=== PATIENT | female | born 1985 | race Hispanic/Latino ===

== ENCOUNTER 2018-05-04 01:30 | Day surgery (SDC) | payer OTHER ==
[2018-05-04 02:12] VITALS: BP 125/72; TEMP 98.5; BMI 39.8
--- NOTE | 2018-05-04 02:47 | PDOC.LDHP ---
Labor and Delivery H&P Chief complaint: contractions HPI: 33 yo diabetic @ 36.5 presents for painful contractions. Pt reports contractions began on Saturday and have gradually increased in frequency and strength. Her main concern was that she began to feel pressure as if she needed to push, similar to prior . She reports pos movement, denies vaginal bleeding, denies vaginal discharge and denies LOF. Per pt, office cervical check was 3cm. Current gestational age (weeks): 36 (36.5) Due date: 05/27/18 Dating criteria: last menstrual period, first trimester ultrasound Current complications: gestational diabetes Abnormal US findings: No Current medications: pre-zachary vitamins Previous surgical history: none Allergies/Adverse Reactions: Allergies Allergy/AdvReac Type Severity Reaction Status Date / Time No Known Allergies Allergy Verified 05/05/18 12:11 Social history: none - Physical Exam Vital signs reviewed and normal: yes General: NAD, breathing through contractions Heart: RRR Lungs: nonlabored breathing Abdomen: gravid Extremeties: trace edema FHT: category 2 (single late deceleration on initiaion of external FHTs (likely positional), since corrected to cat 1 strip. Mod variability, pos accels, and no recurrence of late or variable decelerations. Baseline 140.) [place] contractions every: 5-10min - Vaginal Exam cm dilated: 4 Effacement: 50% Station: -2 - OB Labs Blood type: B RH: positive Antibody Screen: negative HIV: negative RPR: negative HEPSAg: negative 1 hour GCT: positive 3 hour GTT: 205 GBS: negative - Assessment 1) Contractions, r/o latent vs active labor: - ctx every 5-10 minutes, cervical check 4,60,-2; fhts cat 2--> cat 1 - will cont to monitor on L&D and recheck cervix in approx 2 hours to assess change - GBS neg - good dating, no indication for mag/steroids Dispo: stable, obs in l&d, recheck in 2 hrs - Plan Plan: observation in L&D Addendum - Attending - Attending Attestation Date/Time: 05/06/181958 I personally evaluated the patient and discussed the management with Dr. Fernández. I agree with the History, Examination, Assessment and Plan documented above.
--- NOTE | 2018-05-04 04:40 | PDOC.EVN ---
Event Note - Event Note Event Note: 2 hr obs showed recurrent contractions q5-10 minutes, no cervical change (4cm,60 %, -2). Pt reports she is feeling contractions less. Strip shows cat 1 reactive strip baseline 130s, mod variability pos accels and no variable or late decelerations. Overall pt feels as though contractions have drastically decreased. Will plan for DC to home with l&d return precautions. Pt to f/u with primary OB within 1 week.
== END 2018-05-04 04:55 | disposition home or self-care (01) ==
LOC: L&D/OP 01:30
PROVIDERS: ATTEND Obstetrics & Gynecology
DX: O47.03 False labor before 37 completed weeks of gestation, third trimester (principal); O24.415 Gestational diabetes mellitus in pregnancy, controlled by oral hypoglycemic drugs; Z79.899 Other long term (current) drug therapy; Z3A.36 36 weeks gestation of pregnancy
CPT/HCPCS: 99283

== ENCOUNTER 2018-05-05 11:28 | Day surgery (SDC) | payer OTHER ==
[2018-05-05 12:25] VITALS: BMI 39.8
[2018-05-05] MEDS ORDERED: L&D-Morphine 4 MG/ML VIAL SLOW IVP PRN (13:49)
[2018-05-05] MEDS ORDERED: Ondansetron PF 4 MG/2 ML Vial IVP PRN (13:49)
[2018-05-05] MEDS ORDERED: Naloxone HCl 0.4 mg/ml Vial IV PRN (13:49)
[2018-05-05] MEDS ORDERED: Zolpidem Tartrate 5 MG TAB PO PRN (13:49)
[2018-05-05] MEDS ORDERED: diphenhydrAMINE 50 MG/ML VIAL IM PRN (13:49)
[2018-05-05] MEDS ORDERED: fentaNYL Citrate/PF 2,000 MCG in Sodium Chloride 0.9% 60 ML IV PRN (13:49)
[2018-05-05] MEDS ORDERED: Ondansetron HCl/PF 4 MG/2 ML Vial IVP PRN (13:49)
[2018-05-05] MEDS ORDERED: diphenhydrAMINE 50 MG/ML VIAL IVP PRN (13:49)
[2018-05-05] MEDS ORDERED: diphenhydrAMINE 25 MG CAP PO PRN (13:49)
[2018-05-05] MEDS ORDERED: HYDROmorphone 2 MG/ML VIAL SLOW IVP PRN (13:49)
[2018-05-05] MEDS ORDERED: Meperidine HCl/PF 25 MG/ML VIAL SLOW IVP PRN (13:49)
[2018-05-05] MEDS ORDERED: Promethazine HCl 25 MG/ML VIAL IM PRN (13:49)
[2018-05-05] MEDS ORDERED: Communication Order-Pharmacy FS SCH (14:00)
[2018-05-05] MEDS ORDERED: Ketorolac Tromethamine 30 MG/ML VIAL IVP SCH ×2 (14:00→18:00)
--- NOTE | 2018-05-05 14:55 | PRG ---
DATE OF SERVICE: 05/05/2018 TIME OF SERVICE: 1430 hours. PRESENTING COMPLAINT: Contractions. HISTORY OF PRESENT ILLNESS: Ms. Andrew Kwok is a 33-year-old, G3, P2, A2 diabetic at 36-6/7th weeks gestation who was seen here yesterday. She reports continuing contractions. Denies rupture of membranes. Reports mild cough. No fever. FIELD NURSE HISTORY: x2 at term without complications of 8 pounds infants. The patient has gestational diabetes, on metformin and glyburide. Blood type B positive, antibody negative, Pap negative, rubella immune, VDRL nonreactive. Hepatitis B, GC, chlamydia negative. Group B strep negative. MEDICAL HISTORY: Denies. SURGICAL HISTORY: None. ALLERGIES: NONE. MEDICATIONS: vitamins, glyburide and metformin. SOCIAL HISTORY: Denies tobacco, alcohol, or drug use. FAMILY HISTORY: Noncontributory. REVIEW OF SYSTEMS: Noncontributory. PHYSICAL EXAMINATION: GENERAL: female. VITAL SIGNS: Blood pressure 118/72, temperature 98.6, respirations 18, maternal pulse 97. HEENT: Within normal limits. LUNGS: Reveals some rhonchi with cough, however, clear otherwise. ABDOMEN: Soft and nontender without rebound or guarding. Occasional contractions. Vulva without lesions. Vagina slight mucoid discharge. Cervix 4, 60, -2, cephalic ballots with ease consistent with previous exam 2 hours ago. EXTREMITIES: No clubbing, cyanosis, or edema. monitoring for greater than 30 minutes was carried out with category I heart rate tracing, baseline 140s to 150s, positive accelerations, no decelerations. Contractions every 3-5 minutes. IMPRESSION: A 36-6/7th weeks gestation without evidence of active labor and no cervical change with A2 diabetes. PLAN: ER precautions, discharge home. Anticipate onset of spontaneous active labor within the next 12-72 hours. Keep scheduled followup with Dr. Tejeda. Job ID: [id number]
== END 2018-05-05 14:54 | disposition home health service (06) ==
LOC: L&D/OP 11:28
PROVIDERS: ATTEND Obstetrics & Gynecology
DX: O47.03 False labor before 37 completed weeks of gestation, third trimester (principal); O24.419 Gestational diabetes mellitus in pregnancy, unspecified control; Z3A.36 36 weeks gestation of pregnancy; Z79.84 Long term (current) use of oral hypoglycemic drugs; Z79.899 Other long term (current) drug therapy
CPT/HCPCS: 99283; J3010; J7050

== ENCOUNTER 2018-05-07 08:02 | Inpatient (IN) | payer OTHER ==
[2018-05-07 08:31] VITALS: BMI 39.8
[2018-05-07] MEDS ORDERED: Lidocaine 1% (PF) 30 ML VIAL SC PRN (08:31)
[2018-05-07] MEDS ORDERED: NS / Oxytocin 40 units/1000ml 1,000 ML IV PRN (08:31)
[2018-05-07] MEDS ORDERED: Ibuprofen 800 MG TAB PO PRN (08:31)
[2018-05-07] MEDS ORDERED: Ondansetron PF 4 MG/2 ML Vial IVP PRN ×2 (08:31→15:31)
[2018-05-07] MEDS ORDERED: Lactated Ringer's 1,000 ML IV SCH ×4 (08:45→22:00)
[2018-05-07] MEDS ORDERED: Acetaminophen 1,000 MG in Premix Bag 1 BAG IVPB SCH (09:00)
[2018-05-07 09:04] LABS: Hemoglobin 11.7 g/dL (12.0-16.0); Mean Corpuscular HGB CONC 34.3 g/dL (32.0-36.0); Mean Corpuscular Hemoglobin 27.1 pg (27.0-31.0); Mean Corpuscular Volume 79.1 fL (78.0-98.0); Mean Platelet Volume 7.9 fL (7.4-10.4); Platelet Count 263 thou/uL (130-400); Red Blood Cell (RBC) Count 4.32 mill/uL (4.20-5.40); White Blood Cell (WBC) Count 16.2 thou/uL (4.8-10.8)
[2018-05-07] MEDS ORDERED: HumaLOG 300 UNITS/3 ML VIAL SC PRN (09:04)
[2018-05-07] MEDS ORDERED: Dextrose 5% in Water 1,000 ML IV PRN (09:04)
[2018-05-07] MEDS ORDERED: Dextrose 50% Abboject 50 ML SYRINGE SLOW IVP PRN (09:04)
[2018-05-07] MEDS: Ampicillin 2 GM in Sodium Chloride 0.9% 100 ML IVPB SCH ×3 (09:08→21:47)
[2018-05-07] MEDS ORDERED: NS w/ Oxytocin 10 units 500 ML IV SCH (09:15)
[2018-05-07 09:35] LABS: Syphilis Antibody Nonreactive (Nonreactive); Syphilis Antibody Index 0.07 S/CO (<1.00 Non-Reactive)
[2018-05-07 09:37] LABS: HBSAg Index 0.32 S/CO (0-0.99); Hep B Surf Ag Non-Reactive S/CO (NonReactive)
[2018-05-07] MEDS: Gentamicin Sulfate 120 MG in Premix Bag 1 BAG IVPB SCH ×2 (10:04→20:21)
--- NOTE | 2018-05-07 12:01 | PDOC.OPDEL ---
OB Operative/Delivery Note Delivery Dr/Surgeon: Nikhil Pre-Delivery Diagnosis: medically indicated induction (PROM > 16 hrs, chorioamnionitis) Weeks gestation: 38 - Findings A Sex: male - 1 min: 8 - 5 min: 8 - Additional Findings/Plan Placenta delivered: spontaneous Repaired Obstetrical Laceration: 1st degree Estimated blood loss: 250ml Compilations/Other Findings: double nuchal cord reduced at perineum, amp and gent prior to delivery for chorio, NICU for meconium and chorio at delivery Post delivery plan: routine recovery (wiht post abx x 24hrs unless indicated longer)
[2018-05-07] MEDS ORDERED: diphenhydrAMINE 25 MG CAP PO PRN (15:31)
[2018-05-07] MEDS ORDERED: Milk Of Magnesia 30 ML UDCUP PO PRN (15:31)
[2018-05-07] MEDS ORDERED: HYDROcodone/Acetaminophen 5/325 mg Tablet PO PRN ×2 (15:31)
[2018-05-07] MEDS ORDERED: Bisacodyl 10 MG SUPP PR PRN (15:31)
[2018-05-07] MEDS ORDERED: NS / Oxytocin 40 units/1000ml 1,000 ML IV SCH (15:31)
[2018-05-07] MEDS ORDERED: Benzocaine-Menthol 82.5 ML CAN TOP PRN (15:31)
[2018-05-07] MEDS ORDERED: Lanolin Ointment 7 GM TUBE TOP PRN (15:31)
[2018-05-07 21:18] LABS: Hemoglobin 10.4 g/dL (12.0-16.0); Mean Corpuscular HGB CONC 33.5 g/dL (32.0-36.0); Mean Corpuscular Hemoglobin 27.2 pg (27.0-31.0); Mean Corpuscular Volume 81.2 fL (78.0-98.0); Mean Platelet Volume 8.1 fL (7.4-10.4); Platelet Count 228 thou/uL (130-400); RBC Distribution Width 16.3 % (11.5-14.5); Red Blood Cell (RBC) Count 3.84 mill/uL (4.20-5.40); White Blood Cell (WBC) Count 24.4 thou/uL (4.8-10.8)
[2018-05-07 21:29] LABS: Anion Gap 10 mmol/L (10-20); BUN (Urea Nitrogen) 14 mg/dL (7.0-18.7); Calc. Creatinine Clearance 149 mL/min (70-130); Carbon Dioxide 19 mmol/L (22-29); Chloride 108 mmol/L (98-107); Estimated GFR-MDRD 75; Glucose 166 mg/dL (70-105); Magnesium 1.7 mg/dL (1.6-2.6); Sodium 134 mmol/L (136-145)
[2018-05-07 21:48] LABS: Potassium 2.9 mmol/L (3.5-5.1)
[2018-05-07] MEDS: Docusate Calcium (SURFAK) 240 MG CAP PO SCH (21:48)
[2018-05-07] MEDS: Ibuprofen 800 MG TAB PO SCH (21:49)
[2018-05-07] MEDS ORDERED: KCL IV SCH (22:30)
[2018-05-07] MEDS ORDERED: Potassium Chloride 20 MEQ TAB PO SCH (22:30)
[2018-05-07] MEDS ORDERED: NS IV SCH (22:30)
--- NOTE | 2018-05-07 22:49 | PDOC.EVN ---
Event Note - Event Note Event Note: I was called to MS Morales's room for a BP 80's/40's pulse 130s and temp of 95degrees F. Pt has no complaints exept she feels hot and sweaty. She denies headache, dizziness, shortness of breath, fatigue, nausea, vomiting. She walked to NICU a few hours before. On exam. Pt is Alert and oriented, and in no acute distress. Abdomen is appropriately tender, fundus firm, pulse irregular and rapid. pt feels clammy. EKG - afib [place] [address] hgb 10.4 hct 31.2 ptl 228,000 bmp potasium - 2.6 creatinine 0.88 glucose 166 lactic acid 2.6 calcium 8.0 magnesium 1.7 Pt is ppd 0 s/p tsvd complicated by chorioamnionitis with temp 103.5 amp/gent started at that time. aggressive hydration 1liter now 500cc/hr x1lt, reassess hypo k - replace 160meq over night 40meq po now and in the morning. 40meq/liter of IV fluids continuous afib. will reassess after hydration in K replacement in process endomyometritis- amp/gent/clinda hypothermic- bear hugger and warmed iv fluids will reasses in 1hr
[2018-05-07] MEDS: Clindamycin/D5W 900 MG in Premix Bag 1 BAG IVPB SCH (23:04)
[2018-05-08 01:12] LABS: Lactic Acid 2.7 mmol/L (0.5-2.2)
[2018-05-08] MEDS: Gentamicin Sulfate 120 MG in Premix Bag 1 BAG IVPB SCH ×3 (02:11→18:02)
[2018-05-08] MEDS: Ampicillin 2 GM in Sodium Chloride 0.9% 100 ML IVPB SCH ×4 (03:22→21:15)
[2018-05-08] MEDS: Ibuprofen 800 MG TAB PO SCH ×3 (06:49→22:34)
--- NOTE | 2018-05-08 07:02 | PDOC.EVN ---
Event Note - Event Note Event Note: PT reports feeling good. was a little dizzy getting up to go to the bathroom. no chestpain, alert and oriented. bleeding improving. Pt has received 6liters of fluid. about 60meq of potassium so far. blood pressures still low but stable at 80s/50s. pulse down to 90s-100s. sats 97% on room air. Gabe bran been on all night. She has good cap refill, lungs are clear, pulse is still not strong, urinated once this morning and is a little bloody 150cc. I have ordered repeat cbc,bmp, lactic acid, ekg. updated primary team and ordered medicine consult for assistance. Pt has remained stable and showing signs of improvement but still needing resusicitative measures. Will bolus another liter now and continue IV potassium. Pt tolerated po potassium last night and will receive another 40meq this morning po. A second IV was started so IV potassium can contiue while bolusing fluid in the other iv. Will reasses once labs are back.
[2018-05-08 07:26] LABS: Anion Gap 11 mmol/L (10-20); BUN (Urea Nitrogen) 17 mg/dL (7.0-18.7); Calc. Creatinine Clearance 171 mL/min (70-130); Calcium 8.1 mg/dL (7.8-10.44); Carbon Dioxide 18 mmol/L (22-29); Chloride 113 mmol/L (98-107); Estimated GFR-MDRD 87; Glucose 104 mg/dL (70-105); Potassium 3.8 mmol/L (3.5-5.1); Sodium 138 mmol/L (136-145)
[2018-05-08 07:27] LABS: Band 36 % (5-11); Hemoglobin 9.1 g/dL (12.0-16.0); Lymphocytes 12 % (21-51); MDiff Complete? YES; Mean Corpuscular HGB CONC 31.7 g/dL (32.0-36.0); Mean Corpuscular Hemoglobin 26.1 pg (27.0-31.0); Mean Corpuscular Volume 82.4 fL (78.0-98.0); Mean Platelet Volume 8.4 fL (7.4-10.4); Metamyelocyte 1 % (0-0); Monocytes 5 % (0-10); Neutrophil 46 % (42-75); Platelet Count 259 thou/uL (130-400); Platelet Morphology Comment Appears Adequate; RBC Distribution Width 16.3 % (11.5-14.5); Red Blood Cell (RBC) Count 3.46 mill/uL (4.20-5.40); White Blood Cell (WBC) Count 23.9 thou/uL (4.8-10.8)
[2018-05-08] MEDS ORDERED: Potassium Chloride 20 MEQ TAB PO SCH (08:00)
--- NOTE | 2018-05-08 08:21 | PDOC.PP ---
Post Progress Note Post Day #: 1 Subjective: Pt feeling better this morning. Using bear hugger due to hypothermia. Reports lower abdominal tenderness and a cough. Reports minimal lochia. She has been able to void. Denies any chest pain, palpitations or other new concerns. She is more stable this AM. PO intake tolerated: yes Ambulation: yes Vital Signs (12 hours) Temp Pulse Resp BP BP BP BP 05/08/18 08:00 88 20 98/57 L 05/08/18 06:15 95.7 F L 101 H 20 84/56 L 05/08/18 04:01 97.7 F 124 H 18 82/49 L 05/08/18 02:30 95.7 F L 115 H 20 84/50 L 05/08/18 01:20 95.4 F L 131 H 20 85/48 L 05/08/18 00:10 95.8 F L 133 H 18 84/46 L 05/07/18 22:49 65 101/56 L 05/07/18 22:46 122 H 88/52 L 05/07/18 22:44 126 H 82/50 L 05/07/18 22:42 77 105/60 Pulse Ox 05/08/18 08:00 98 05/08/18 06:15 98 05/08/18 04:01 99 05/08/18 02:30 98 05/08/18 01:20 97 05/08/18 00:10 98 05/07/18 22:49 05/07/18 22:46 05/07/18 22:44 05/07/18 22:42 Weight Weight 225 lb - Physical Examination General: NAD Deviation from normal: Diaphoretic on exam Cardiovascular: RRR Deviation from normal: pulse no RRR, no longer tachycardic and no longer in Afib. Respiratory: clear to auscultation bilaterally, non-labored breathing Abdominal: no distention Deviation from normal: moderate ttp on fundus Fundus firm & at: below umbilius Extremities: negative homans (B) Neurological: no gross focal deficits Psychiatric: A&Ox3, normal affect Result Diagrams: 05/08/18 06:00 05/08/18 06:00 Additional Labs: Post Labs Blood Type B POSITIVE 05/07/18 08:42 Hep Bs Antigen Non-Reactive S/CO (NonReactive) 05/07/18 08:42 (1) Sepsis Code(s): A41.9 - SEPSIS, UNSPECIFIED ORGANISM Status: Acute (2) Vaginal delivery Code(s): O80 - ENCOUNTER FOR FULL-TERM UNCOMPLICATED DELIVERY Status: Acute (3) Chorioamnionitis Code(s): O41.1290 - CHORIOAMNIONITIS, UNSP TRIMESTER, NOT APPLICABLE OR UNSP Status: Acute - Assessment/Plan PPD1 Pt became septic overnight, please see event notes from Dr. Murphy. She is improved this morning. Afib has resolved. BP improved/stable and no longer tachycardic. Lactic acid has improved. Continue Amp/Gent/Clinda. has E. Coli in culture. Continue IVF administration. Monitor strict I/Os and monitor repeat labs. Will consult IM for assistance should she decline. Monitor closely.
[2018-05-08] MEDS: Sodium Chloride 0.9% 1,000 ML IV SCH ×2 (08:25→10:41)
[2018-05-08] MEDS: Clindamycin/D5W 900 MG in Premix Bag 1 BAG IVPB SCH ×3 (08:26→22:34)
[2018-05-08] MEDS ORDERED: Adacel (T-DAP) 0.5 ML SYRINGE IM ONE (09:00)
[2018-05-08] MEDS: Prenatal Vitamin 1 TAB PO SCH (09:51)
[2018-05-08] MEDS: Docusate Calcium (SURFAK) 240 MG CAP PO SCH ×2 (09:51→21:16)
--- NOTE | 2018-05-08 10:28 | RAD ---
CHEST 2 VIEWS: Date: 05/08/18 HISTORY: Cough and fever. COMPARISON: 07/05/15. FINDINGS: Heart size is normal. The lungs are clear. No pneumonia, edema, pleural effusion, or other acute proc ess. IMPRESSION: No acute intrathoracic disease. POS: C
--- NOTE | 2018-05-08 10:36 | HP ---
Consultation from Dr. Peyman Tejeda. HISTORY OF PRESENT ILLNESS: The patient is one day vaginal delivery. She states that she had fever two days prior to admission up to 101. She had chills and sweats. She had some cough and shortness of breath for about a month. She had seen a physician, had antibiotics, not improved. She had some suprapubic abdominal pain. She had had contractions for about a week prior to delivery. She noticed some off-color vaginal discharge on 05/06. She is . She developed fever to 103, tachycardia up to 130, was noted to have atrial fibrillation, but this spontaneously converted, room air saturation remained well at 99, respirations stayed stable 18 to 20, blood pressure ranged on 05/07 from 84/43 to 105/56. The patient has been started on antibiotic therapy, ampicillin 2 g q.6 hours, clindamycin 900 mg q.8 hours, and Garamycin 120 mg q.8 hours. There are no culture reports. Parenthetically, I am told that the baby has a bacteremia with E. coli, (which is almost certainly associated). Currently, the patient still has mild cough, some mild tenderness, but states she feels much better than yesterday. PAST MEDICAL HISTORY: Pertinent for gestational diabetes, on metformin, glyburide, Nexium, Singulair, and Advair HFA. ALLERGIES: NO ALLERGIES. PAST SURGICAL HISTORY: Negative prior to this. FAMILY HISTORY: Both parents have diabetes mellitus, and her mother had lymphoma, has received therapy and has recovered. SOCIAL HISTORY: The patient is a nontobacco user. No alcohol. Of note, no illicit drugs. REVIEW OF SYSTEMS: In addition to the present illness, she has been somewhat lightheaded for the past couple of days. No fainting. HEENT: Eyes, no double vision, blurred vision, or flashing lights. Ear, nose, and throat, she states her right ear feels clogged. No pain or drainage. No nose bleeds. No trouble swallowing. CARDIAC: No chest pain, orthopnea, or paroxysmal nocturnal dyspnea. RESPIRATIONS: Dry cough for about a month. Some minimal shortness of breath. No wheezing. GASTROINTESTINAL: She had nausea and vomiting earlier this week. No diarrhea. No hematemesis. : See present illness. She has no pain on urination. No blood on urination. MUSCULOSKELETAL: No pain or swelling in her arms or legs. NEUROLOGICAL: No history of strokes, seizures, or focal weakness. PSYCHIATRIC: No anxiety or depression. SKIN: No bruising, bleeding, or rash. HEME/LYMPH: No tender or swollen lymph nodes in axilla, inguinal, or cervical area. PHYSICAL EXAMINATION: GENERAL: She is alert, pleasant lady, cooperative, in no distress. VITAL SIGNS: She has a warming device on. She was noted to have a temperature in the 95 range this morning. Her current pulse is 88. Current blood pressure 98/57, respiratory rate still 20. HEENT: Examination of her head, eyes, ears, nose, and throat revealed pupils are equal, round, and reactive. Extraocular moves are intact. Sclerae are white. Tympanic membranes are normal on the left included by wax on the right. Oral mucous membranes are wet. Nose is clear. NECK: No jugular venous distention, adenopathy, or thyromegaly. CHEST: Clear to auscultation and percussion. HEART: Regular rate and rhythm. First and second second heart sounds are clear. There are no appreciated murmurs or gallops. ABDOMEN: Soft. She has very minimal suprapubic tenderness. Bowel sounds are normal. No masses. No hepatosplenomegaly. EXTREMITIES: No cyanosis, clubbing, or edema. No calf tenderness. PULSES: Carotid, radial, femoral, and dorsalis pedis pulses are intact. SKIN: Warm and dry without bruises or rash. HEME/LYMPH: No tender or swollen lymph nodes in axilla, inguinal, or cervical area. NEUROLOGIC: Cranial nerves 2 through 12 are intact. Moves all extremities. DIAGNOSTIC DATA: Chest x-ray, none available. EKG, currently in regular sinus rhythm, reviewed by me. There are no cultures reported. LABORATORY DATA: CBC this morning shows 23.9 white count, 9.1 hemoglobin, and 259,000 platelet count. She has 36 bands on the differential. Chemistry, sodium 138, potassium 3.8, carbon dioxide 18, BUN 17, creatinine 0.77. Initial lactic acid on 05/07, was 2.6, today it is 0.8. TSH is normal. ADMITTING CURRENT DIAGNOSES: 1. . 2. Sepsis syndrome, most likely related to chorioamnionitis with her child having an Escherichia coli bacteremia; I suspect that is the cause. Current antibiotics, ampicillin and gentamicin should be adequate for that. We will leave on current therapy. 3. Lactic acidosis, related to sepsis, resolved. 4. Hypothermia, related to sepsis syndrome. 5. Paroxysmal atrial fibrillation. 6. Gestational diabetes mellitus, on oral hypoglycemic agents. In addition to current therapy, I recommend a chest x-ray and an echocardiogram. I have ordered these. Thank you for the consult. Agree with current management. We will follow with you. Job ID: [id number]
[2018-05-08] MEDS: guaiFENesin 200 MG TAB PO SCH ×2 (10:42→18:02)
[2018-05-08 13:41] LABS: Anisocytosis SLIGHT = 6-15 cells (100X) (0-5/hpf); Band 43 % (5-11); Hemoglobin 8.2 g/dL (12.0-16.0); Lymphocytes 9 % (21-51); MDiff Complete? YES; Mean Corpuscular HGB CONC 32.4 g/dL (32.0-36.0); Mean Corpuscular Hemoglobin 26.8 pg (27.0-31.0); Mean Corpuscular Volume 82.9 fL (78.0-98.0); Monocytes 4 % (0-10); Neutrophil 43 % (42-75); Platelet Count 189 thou/uL (130-400); Platelet Morphology Comment Appears Adequate; Polychromasia SLIGHT = 2-3 cells (100X) (0-2/hpf); RBC Distribution Width 16.4 % (11.5-14.5); Reactive Lymphocytes 1 % (0-10); Red Blood Cell (RBC) Count 3.04 mill/uL (4.20-5.40); White Blood Cell (WBC) Count 18.6 thou/uL (4.8-10.8)
[2018-05-08 14:05] LABS: ALT (SGPT) 21 U/L (8-55); AST (SGOT) 16 U/L (5-34); Albumin 1.9 g/dL (3.5-5.0); Alkaline Phosphatase 146 U/L (40-150); Anion Gap 10 mmol/L (10-20); BUN (Urea Nitrogen) 16 mg/dL (7.0-18.7); Bilirubin, Total 0.7 mg/dL (0.2-1.2); Calc. Creatinine Clearance 162 mL/min (70-130); Calcium 7.8 mg/dL (7.8-10.44); Carbon Dioxide 17 mmol/L (22-29); Chloride 117 mmol/L (98-107); Estimated GFR-MDRD 82; Globulin 2.6 g/dL (2.4-3.5); Glucose 103 mg/dL (70-105); Potassium 3.8 mmol/L (3.5-5.1); Protein, Total 4.5 g/dL (6.0-8.3); Sodium 140 mmol/L (136-145)
--- NOTE | 2018-05-08 15:25 | PDOC.EVN ---
Event Note - Event Note Event Note: CXR clear, ECHO pending
[2018-05-08] MEDS ORDERED: Sodium Chloride 0.9% 10 ML ONE (15:40)
--- NOTE | 2018-05-08 16:51 | PDOC.EVN ---
Event Note - Event Note Event Note: Pt has stabilized over the course of the day. Labs and VS have improved. She is no longer hypothermic. Will continue Amp/Gent and clinda. Monitor closely. Echo pending. Appreciated IM assistance with care. Blood cultures negative thus far. Infant with E. Coli.
[2018-05-08 19:20] LABS: ALT (SGPT) 24 U/L (8-55); AST (SGOT) 18 U/L (5-34); Albumin 2.1 g/dL (3.5-5.0); Alkaline Phosphatase 163 U/L (40-150); Anion Gap 11 mmol/L (10-20); BUN (Urea Nitrogen) 15 mg/dL (7.0-18.7); Bilirubin, Total 0.7 mg/dL (0.2-1.2); Calc. Creatinine Clearance 162 mL/min (70-130); Calcium 8.1 mg/dL (7.8-10.44); Carbon Dioxide 18 mmol/L (22-29); Chloride 115 mmol/L (98-107); Estimated GFR-MDRD 82; Glucose 91 mg/dL (70-105); Potassium 3.8 mmol/L (3.5-5.1); Protein, Total 5.1 g/dL (6.0-8.3); Sodium 140 mmol/L (136-145)
[2018-05-08 19:46] LABS: Band 22 % (5-11); Hemoglobin 8.9 g/dL (12.0-16.0); Lymphocytes 11 % (21-51); MDiff Complete? YES; Mean Corpuscular HGB CONC 32.4 g/dL (32.0-36.0); Mean Corpuscular Hemoglobin 26.5 pg (27.0-31.0); Mean Corpuscular Volume 81.8 fL (78.0-98.0); Mean Platelet Volume 8.3 fL (7.4-10.4); Monocytes 4 % (0-10); Neutrophil 63 % (42-75); Platelet Count 279 thou/uL (130-400); RBC Distribution Width 16.1 % (11.5-14.5); Red Blood Cell (RBC) Count 3.36 mill/uL (4.20-5.40); White Blood Cell (WBC) Count 18.8 thou/uL (4.8-10.8)
[2018-05-08] MEDS: Lactated Ringer's 1,000 ML IV SCH (21:16)
[2018-05-09] MEDS: guaiFENesin 200 MG TAB PO SCH ×5 (00:06→23:46)
[2018-05-09 00:13] LABS: Hemoglobin 8.6 g/dL (12.0-16.0); Mean Corpuscular HGB CONC 31.9 g/dL (32.0-36.0); Mean Corpuscular Hemoglobin 26.9 pg (27.0-31.0); Mean Corpuscular Volume 84.1 fL (78.0-98.0); Mean Platelet Volume 8.3 fL (7.4-10.4); Platelet Count 254 thou/uL (130-400); RBC Distribution Width 16.4 % (11.5-14.5); Red Blood Cell (RBC) Count 3.21 mill/uL (4.20-5.40); White Blood Cell (WBC) Count 18.3 thou/uL (4.8-10.8)
[2018-05-09 00:30] LABS: ALT (SGPT) 23 U/L (8-55); AST (SGOT) 16 U/L (5-34); Albumin 2.1 g/dL (3.5-5.0); Alkaline Phosphatase 172 U/L (40-150); Anion Gap 12 mmol/L (10-20); BUN (Urea Nitrogen) 16 mg/dL (7.0-18.7); Bilirubin, Total 0.8 mg/dL (0.2-1.2); Calc. Creatinine Clearance 168 mL/min (70-130); Calcium 7.8 mg/dL (7.8-10.44); Carbon Dioxide 18 mmol/L (22-29); Chloride 113 mmol/L (98-107); Estimated GFR-MDRD 86; Globulin 2.9 g/dL (2.4-3.5); Glucose 100 mg/dL (70-105); Potassium 3.7 mmol/L (3.5-5.1); Sodium 139 mmol/L (136-145)
[2018-05-09 00:38] LABS: Band 21 % (5-11); Lymphocytes 16 % (21-51); MDiff Complete? YES; Monocytes 2 % (0-10); Neutrophil 61 % (42-75)
[2018-05-09] MEDS: Gentamicin Sulfate 120 MG in Premix Bag 1 BAG IVPB SCH ×3 (02:08→18:07)
[2018-05-09] MEDS: Lactated Ringer's 1,000 ML IV SCH ×3 (02:17→18:23)
[2018-05-09] MEDS: Ampicillin 2 GM in Sodium Chloride 0.9% 100 ML IVPB SCH ×4 (03:28→21:04)
[2018-05-09] MEDS: Ibuprofen 800 MG TAB PO SCH ×3 (05:26→22:30)
[2018-05-09] MEDS: Clindamycin/D5W 900 MG in Premix Bag 1 BAG IVPB SCH ×3 (05:27→22:30)
[2018-05-09] MEDS: Mometasone/Formoterol 120 PUFF INHALER INH SCH ×2 (07:35→19:41)
--- NOTE | 2018-05-09 08:08 | PDOC.PP ---
Post Progress Note Post Day #: 2 Subjective: feeling much stronger, able to ambulate, tolerating regular diet, no fever/ chills overnight, lochia like menses, some mild RLQ discomfort this AM, feels like she is "sore" PO intake tolerated: yes Flatus: yes Ambulation: yes Vital Signs (12 hours) Temp Pulse Resp BP BP BP Pulse Ox 05/09/18 07:54 97.7 F 97 20 95/62 99 05/09/18 05:20 98.7 F 91 20 91/50 L 96 05/09/18 02:00 98.6 F 98 20 96/54 L 96 05/09/18 00:10 98.6 F 99 18 104/59 L 100 05/08/18 23:19 101 H 20 99 05/08/18 22:17 97.7 F 92 18 97/53 L 100 05/08/18 20:08 97.6 F 99 18 90/60 99 Weight Weight 225 lb - Physical Examination General: NAD Respiratory: non-labored breathing Abdominal: no distention, appropriately TTP (minimal RLQ tenderness to deep palpation) Fundus firm & at: below umb Skin: no rash Neurological: no gross focal deficits Psychiatric: A&Ox3, normal affect Result Diagrams: 05/09/18 00:01 05/09/18 00:01 Additional Labs: Post Labs Blood Type B POSITIVE 05/07/18 08:42 Hep Bs Antigen Non-Reactive S/CO (NonReactive) 05/07/18 08:42 - Assessment/Plan A/P: PPD sp after IOL presenting w chorioamnionitis and prolonged ROM, PP course complicated by sepsis (E.coli) syndrome. Pt is improving well clinically , vitals normalizing, labs normalizing, physically patient reports she is feeling much better. ECHO report and E. coli sensitivities pending. Will continue Amp/Gen/Clinda at this time, possible DC tomorrow AM if she continues to improve today. Discussed normal vs abnormal RLQ discomfort PP, pt to notify if pain is noted with ambulation or increase today.
[2018-05-09] MEDS: Prenatal Vitamin 1 TAB PO SCH (08:57)
[2018-05-09] MEDS: Docusate Calcium (SURFAK) 240 MG CAP PO SCH ×2 (09:03→21:05)
[2018-05-09] MEDS ORDERED: Sodium Chloride 0.9% 20 ML ONE (13:49)
--- NOTE | 2018-05-09 15:20 | PDOC.PN ---
- Subjective Encounter Start Date: 05/09/18 Encounter Start Time: 15:19 Ms. Morales was seen today in follow-up of Chorioamnionitis. She admits to a little soreness in the lower right abdomen. She denies any pain with eating unless she gets too full. She denies any nausea or vomiting. - Objective MAR Reviewed: Yes Vital Signs & Weight: Vital Signs (12 hours) Temp Pulse Resp BP BP BP Pulse Ox 05/09/18 14:30 98.3 F 100 20 99/55 L 98 05/09/18 11:32 97.8 F 94 20 105/59 L 05/09/18 11:22 98 20 98 05/09/18 10:19 97.6 F 100 20 103/56 L 98 05/09/18 07:54 97.7 F 97 20 95/62 99 05/09/18 05:20 98.7 F 91 20 91/50 L 96 Weight Weight 225 lb I&O: 05/08/18 05/09/18 05/10/18 06:59 06:59 06:59 Intake Total 27311 Output Total 1800 300 Balance 8356 -300 Result Diagrams: 05/09/18 00:01 05/09/18 00:01 Phys Exam - Physical Examination HEENT: PERRLA Respiratory: no rales, no rhonchi, wheezing present + bilateral wheezing Cardiovascular: RRR, no significant murmur, no rub Gastrointestinal: soft, non-tender, no distention, positive bowel sounds Musculoskeletal: no edema, pulses present Dx/Plan (1) E. coli sepsis Code(s): A41.51 - SEPSIS DUE TO ESCHERICHIA COLI [E. COLI] Status: Acute (2) Asthma Code(s): J45.909 - UNSPECIFIED ASTHMA, UNCOMPLICATED Status: Acute (3) Chorioamnionitis Code(s): O41.1290 - CHORIOAMNIONITIS, UNSP TRIMESTER, NOT APPLICABLE OR UNSP Status: Acute - Plan * Chorioamnionitis with E. coli sepsis- Continue Ampicillin, Gentamicin and Clindamycin * Still awaiting sensitivities on the E. coli * Asthma- stable- continue Duonebs prn * Hopefully home tomorrow if stable.
[2018-05-09] MEDS: Ferrous Sulfate 325 MG TAB PO SCH (16:01)
[2018-05-10] MEDS: Gentamicin Sulfate 120 MG in Premix Bag 1 BAG IVPB SCH ×2 (02:06→09:50)
[2018-05-10] MEDS: Lactated Ringer's 1,000 ML IV SCH ×2 (02:09→13:40)
--- NOTE | 2018-05-10 03:16 | PDOC.PP ---
Post Progress Note Post Day #: 3 Subjective: Patient doing well. No significant overnight events. Patient has remained afebrile. She states she is feeling well. She has been ambulating and tolerating PO. She states she feels much better than she did a few days ago. PO intake tolerated: yes Flatus: yes Ambulation: yes Vital Signs (12 hours) Temp Pulse Resp BP Pulse Ox 05/10/18 02:05 98.5 F 94 20 104/59 L 96 05/09/18 23:45 98.9 F 98 16 107/55 L 05/09/18 22:30 98.5 F 110 H 20 112/68 100 05/09/18 19:58 97.5 F L 109 H 18 136/78 100 05/09/18 19:38 103 H 18 99 05/09/18 18:10 97.7 F 101 H 18 120/61 97 05/09/18 16:15 98.1 F 102 H 20 113/56 L 98 05/09/18 15:56 96 20 98 Weight Weight 102.058 kg - Physical Examination General: NAD Cardiovascular: no m/r/g, RRR (occasional PVC's) Respiratory: clear to auscultation bilaterally, non-labored breathing Abdominal: + bowel sounds, lochia (less than period), no distention, appropriately TTP Fundus firm & at: below umbilicus Neurological: no gross focal deficits Psychiatric: A&Ox3, normal affect Result Diagrams: 05/11/18 06:15 05/09/18 00:01 Additional Labs: Post Labs Blood Type B POSITIVE 05/07/18 08:42 Hep Bs Antigen Non-Reactive S/CO (NonReactive) 05/07/18 08:42 (1) E. coli sepsis Code(s): A41.51 - SEPSIS DUE TO ESCHERICHIA COLI [E. COLI] Status: Acute (2) Chorioamnionitis Code(s): O41.1290 - CHORIOAMNIONITIS, UNSP TRIMESTER, NOT APPLICABLE OR UNSP Status: Acute (3) Asthma Code(s): J45.909 - UNSPECIFIED ASTHMA, UNCOMPLICATED Status: Acute (4) Sepsis Code(s): A41.9 - SEPSIS, UNSPECIFIED ORGANISM Status: Acute (5) Vaginal delivery Code(s): O80 - ENCOUNTER FOR FULL-TERM UNCOMPLICATED DELIVERY Status: Acute - Assessment/Plan A/P: 1. Routine PP care - PPD #3 s/p after IOL presenting w chorioamnionitis and prolonged ROM - Patient with E. coli bacteremia and severe sepsis currently on IV Gentamicin - Lochia minimal - Stable from OB PP standpoint 2. Severe sepsis 2/2 E.coli bacteremia - Presumably from chorioamnionitis - Patient hypotensive and hypothermic PP, vitals have been stable and patient has been afebrile and has had no further episodes of hypothermia - Blood cultures positive 1/2 for E. coli sensitive to gentamicin which patient was started on when presenting to L&D. She will likely transition to oral antibiotics today and be observed for a period of 24 hours prior to d/c home with oral antibiotics. Infant with E. coli bacteremia. - Patient clinically improved - Hospitalist consulted; appreciate recommendations - Amp and clindamycin d/c'd yesterday and gentamicin continued d/t sensitivities - Echo with EF of 50-55% and no evidence of vegetations or valvular disease Dispo: Will await recommendations of Hospitalist. Stable from OB standpoint. Candace Blas DO PGY-2 Addendum - Attending - Attending Attestation Date/Time: 05/11/18 [id number] I personally evaluated the patient and discussed the management with Dr. Blas I agree with the History, Examination, Assessment and Plan documented above with any addition or exceptions noted below.
[2018-05-10] MEDS: guaiFENesin 200 MG TAB PO SCH ×4 (05:28→23:14)
[2018-05-10] MEDS: Ibuprofen 800 MG TAB PO SCH ×3 (05:28→21:07)
[2018-05-10] MEDS: Mometasone/Formoterol 120 PUFF INHALER INH SCH ×2 (06:45→18:29)
[2018-05-10] MEDS: Prenatal Vitamin 1 TAB PO SCH (09:41)
[2018-05-10] MEDS: Ferrous Sulfate 325 MG TAB PO SCH ×2 (09:42→17:15)
[2018-05-10] MEDS: Docusate Calcium (SURFAK) 240 MG CAP PO SCH ×2 (09:42→21:31)
--- NOTE | 2018-05-10 11:21 | PDOC.PN ---
- Subjective Encounter Start Date: 05/10/18 Encounter Start Time: 11:20 MsNoelle Morales was seen today in follow-up of chorioamnionitis. She does not have any complaints this morning. She says the pain she had in her right side is much better. - Objective MAR Reviewed: Yes Vital Signs & Weight: Vital Signs (12 hours) Temp Pulse Resp BP BP Pulse Ox 05/10/18 08:00 98.3 F 94 18 103/63 98 05/10/18 06:45 91 15 98 05/10/18 05:44 98.3 F 85 16 110/57 L 05/10/18 02:05 98.5 F 94 20 104/59 L 96 05/09/18 23:45 98.9 F 98 16 107/55 L Weight Weight 225 lb I&O: 05/09/18 05/10/18 05/11/18 06:59 06:59 06:59 Intake Total 43147 3187 Output Total 1800 1740 100 Balance 8356 1447 -100 Result Diagrams: 05/09/18 00:01 05/09/18 00:01 Phys Exam - Physical Examination HEENT: PERRLA Respiratory: no wheezing, no rales, no rhonchi, clear to auscultation bilateral Cardiovascular: RRR, no significant murmur, no rub Gastrointestinal: soft, non-tender, no distention, positive bowel sounds Musculoskeletal: no edema, pulses present Dx/Plan (1) Chorioamnionitis Code(s): O41.1290 - CHORIOAMNIONITIS, UNSP TRIMESTER, NOT APPLICABLE OR UNSP Status: Acute (2) E. coli sepsis Code(s): A41.51 - SEPSIS DUE TO ESCHERICHIA COLI [E. COLI] Status: Acute (3) Asthma Code(s): J45.909 - UNSPECIFIED ASTHMA, UNCOMPLICATED Status: Acute - Plan * Chorioamnionitis- Due to E. Coli with sepsis- improving. Discussed with Dr. Gamez OB- Hospitalist,, will change her antibiotics to Omnicef * Discontinue Gentamicin * Right sided abdominal pain- resolved * Asthma- stable * If she is stable overnight, possible discharge home.
--- NOTE | 2018-05-10 11:29 | PDOC.EVN ---
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 Oral med will continue for 7 days
--- NOTE | 2018-05-10 11:32 | PDOC.EVN ---
Event Note - Event Note Event Note: L&D Check: Strip checked AROM at 1030 We will check at 1230 and if no cervical change, begin pitocin as CTX pattern irregular
--- NOTE | 2018-05-10 15:50 | PDOC.EVN ---
Event Note - Event Note Event Note: OBGYN Staff: PPD3 Notified that baby requires intubation for possible pneumonia. I have seen the patient at bedside and reviewedcare. I discussed her switch to oral Omnicef, and patient agrees. RT at bedside, giving patient a breathing treatment. Lungs clear per his auscultation. RR not laborered. Past CXR 2 days ago wnl Echo done prior also neg If we discharge mother tomorrow, we will allow Bed and Breakfast for her to stay with the baby.
[2018-05-10] MEDS: Cefdinir 300 MG CAP PO SCH (21:07)
--- NOTE | 2018-05-11 04:27 | PDOC.PP ---
Post Progress Note Post Day #: 4 Subjective: Feels better, no issues with breathing, no CP, no SOB PO intake tolerated: yes Flatus: yes Ambulation: yes Vital Signs (12 hours) Temp Pulse Resp BP BP BP Pulse Ox 05/10/18 23:20 97 20 98 05/10/18 23:19 98.9 F 95 20 110/67 99 05/10/18 21:10 99.7 F H 91 16 115/74 100 05/10/18 17:00 97.8 F 99 14 117/72 Weight Weight 225 lb - Physical Examination General: NAD Cardiovascular: no m/r/g Respiratory: clear to auscultation bilaterally Abdominal: + bowel sounds, lochia, no distention, appropriately TTP Extremities: negative homans (B) Neurological: no gross focal deficits Psychiatric: A&Ox3, normal affect Result Diagrams: 05/09/18 00:01 05/09/18 00:01 Additional Labs: Post Labs Blood Type B POSITIVE 05/07/18 08:42 Hep Bs Antigen Non-Reactive S/CO (NonReactive) 05/07/18 08:42 (1) E. coli sepsis Code(s): A41.51 - SEPSIS DUE TO ESCHERICHIA COLI [E. COLI] Status: Acute (2) Vaginal delivery Code(s): O80 - ENCOUNTER FOR FULL-TERM UNCOMPLICATED DELIVERY Status: Acute - Assessment/Plan PPD 4 now...now on oral ABX (Omnicef) since yesterday She is doing well...TM was 99.7 last PM but under temp cutoff for feber Clinically, she is well. Her child at home (6 year old with Down Syndrome) has fever, and possible "UTI" . This is recurrent problem based on her account. She would like to be released home today so she can check on her as well. Baby here still intubated in NICU but stable. We will plan on 1500 DC F/U in one week at clinic for med follow up Final DX: E Coli sepsis (resolved) IAI
[2018-05-11] MEDS: Ibuprofen 800 MG TAB PO SCH (05:10)
[2018-05-11] MEDS: guaiFENesin 200 MG TAB PO SCH ×2 (05:11→11:38)
[2018-05-11 06:28] LABS: #Eosinphils 0.1 thou/uL (0.0-0.7); #Monocytes 0.5 thou/uL (0.11-0.59); #Neutrophils 5.7 thou/uL (1.40-6.50); %Basophils 0.4 % (0.0-1.0); %Eosinophils 0.7 % (0.0-10.0); %Lymphocytes 24.1 % (21.0-51.0); %Monocytes 6.5 % (0.0-10.0); %Neutrophils 68.3 % (42.0-75.0); Hemoglobin 7.8 g/dL (12.0-16.0); Mean Corpuscular HGB CONC 32.7 g/dL (32.0-36.0); Mean Corpuscular Hemoglobin 26.8 pg (27.0-31.0); Mean Corpuscular Volume 81.9 fL (78.0-98.0); Mean Platelet Volume 7.5 fL (7.4-10.4); Platelet Count 193 thou/uL (130-400); RBC Distribution Width 16.5 % (11.5-14.5); Red Blood Cell (RBC) Count 2.89 mill/uL (4.20-5.40); White Blood Cell (WBC) Count 8.3 thou/uL (4.8-10.8)
[2018-05-11] MEDS: Cefdinir 300 MG CAP PO SCH (07:59)
[2018-05-11] MEDS: Docusate Calcium (SURFAK) 240 MG CAP PO SCH (08:00)
[2018-05-11] MEDS: Prenatal Vitamin 1 TAB PO SCH (08:00)
[2018-05-11] MEDS: Mometasone/Formoterol 120 PUFF INHALER INH SCH (08:24)
[2018-05-11 08:50] VITALS: BP 109/59; TEMP 97.4
[2018-05-11] MEDS: Ferrous Sulfate 325 MG TAB PO SCH (10:02)
--- NOTE | 2018-05-12 08:17 | DIS ---
DATE OF ADMISSION: 05/07/2018 DATE OF DISCHARGE: 05/11/2018 PRIMARY CARE PHYSICIAN: Dr. Peyman Tejeda. DISCHARGE DISPOSITION: Home. PRIMARY DISCHARGE DIAGNOSES: 1. Chorioamnionitis. 2. Sepsis secondary to Escherichia coli. 3. Asthma. FINAL DIAGNOSIS: Gestational diabetes. PROCEDURES DONE DURING ADMISSION: The patient had an echocardiogram, showing ejection fraction of 50% to 55%. There was no evidence of mitral regurgitation. There was no other significant valvular disease. CODE STATUS: Full code. ALLERGIES: NO KNOWN DRUG ALLERGIES. HOSPITAL COURSE: Ms. Morales is a pleasant 33-year-old female, who recently had a spontaneous vaginal delivery and a few days following the delivery, she has developed a fever with a temperature up to 103 as well as tachycardia and was noted to have some transient atrial fibrillation as well. She was admitted and [facility] P[facility]ER was consulted. She was found to have chorioamnionitis and was started on broad-spectrum antibiotics including ampicillin, gentamicin, and clindamycin. Blood cultures eventually grew E coli. This organism was also isolated in her baby. The E coli sensitivities resulted and was sensitive to quinolones as well as cephalosporins. After she recovered with regard to the sepsis, she was transitioned to an oral antibiotic and overnight she did well. Her fever had subsided. Leukocytosis had improved. She initially came in with a white blood cell count of 24.4 and at discharge, it was 8.3. She was able to be discharged home and to have close outpatient followup. Job ID: [id number]
--- NOTE | 2018-05-12 17:37 | EKG ---
Test Reason : STAT Blood Pressure : / mmHG Vent. Rate : 141 BPM Atrial Rate : 197 BPM P-R Int : 000 ms QRS Dur : 086 ms QT Int : 298 ms P-R-T Axes : 000 022 020 degrees QTc Int : 456 ms Atrial fibrillation with rapid ventricular response Abnormal ECG No previous ECGs available Confirmed by JOSE STONE (2) on 05/12/2018 5:37:22 PM Referred By: SARANYA METZGER Confirmed By:JOSE STONE
--- NOTE | 2018-05-12 17:38 | EKG ---
Test Reason : Blood Pressure : / mmHG Vent. Rate : 083 BPM Atrial Rate : 083 BPM P-R Int : 120 ms QRS Dur : 084 ms QT Int : 358 ms P-R-T Axes : 033 013 011 degrees QTc Int : 420 ms Normal sinus rhythm with sinus arrhythmia Normal ECG Confirmed by JOSE STONE (2) on 05/12/2018 5:37:45 PM Referred By: DOMENICA Confirmed By:JOSE STONE
== END 2018-05-11 12:25 | disposition home or self-care (01) | DRG 776 ==
LOC: L&D/OP 08:02 → L&D 08:49 → 3SW 17:44
PROVIDERS: ADMIT Obstetrics & Gynecology; ATTEND Obstetrics & Gynecology
DX: O85 Puerperal sepsis (principal); O41.1230 Chorioamnionitis, third trimester, not applicable or unspecified; O90.89 Other complications of the puerperium, not elsewhere classified; B96.20 Unspecified Escherichia coli [E. coli] as the cause of diseases classified elsewhere; I48.0 Paroxysmal atrial fibrillation; J45.909 Unspecified asthma, uncomplicated
CPT/HCPCS: 36415; 36416; 71046; 80048; 83605; 83735; 84443; 85025; 85027; 86780; 86850; 86900; 86901; 87040; 87077; 87149; 87186; 87340; 93005; 93010; 93306; 94640; 99283; 99285; J0131; J0290; J1580; J2001; J3010; J3480; J3490; J7050; J7620

== ENCOUNTER 2019-04-16 09:09 | Outpatient (CLI) | payer BC ==
--- NOTE | 2019-04-16 10:01 | MMO ---
Bilateral MAMMO Bilat Diag [facility]. CLINICAL HISTORY: Patient is 34 years old and is seen for diagnostic exam. The patient has the following family history of breast cancer: 2 cousin females. The patient has no personal history of cancer. VIEWS: The views performed were: bilateral craniocaudal with tomosynthesis; bilateral mediolateral oblique with tomosynthesis; and bilateral mediolateral with tomosynthesis. This study has been interpreted with the assistance of computer-aided detection. MAMMOGRAM FINDINGS: There are scattered fibroglandular densities. There are no suspicious masses, suspicious calcifications, or new areas of architectural distortion. IMPRESSION: THERE IS NO MAMMOGRAPHIC EVIDENCE OF MALIGNANCY. A ROUTINE FOLLOW-UP MAMMOGRAM AT AGE 42 IS RECOMMENDED. THE RESULTS OF THIS EXAM WERE SENT TO THE PATIENT. ACR BI-RADS Category 1 - Negative MAMMOGRAPHY NOTE: 1. A negative mammogram report should not delay a biopsy if a dominant of clinically suspicious mass is present. 2. Approximately 10% to 15% of breast cancers are not detected by mammography. 3. Adenosis and dense breasts may obscure an underlying neoplasm. Reported by: PEDRO ZHANG MD Electonically Signed: [id number]
== END 2019-04-16 09:10 | disposition home or self-care (01) ==
LOC: BICMAMMO 09:09
PROVIDERS: ATTEND Family Medicine
DX: N64.4 Mastodynia (principal); Z80.3 Family history of malignant neoplasm of breast
CPT/HCPCS: 77066; G0279

== ENCOUNTER 2020-03-08 13:19 | Outpatient (CLI) | payer BC ==
--- NOTE | 2020-03-08 14:15 | ULT ---
Exam: Left extremity venous ultrasound with Doppler HISTORY: 9 days of left arm swelling and pain. COMPARISON: None TECHNIQUE: Grayscale, color flow, Doppler imaging and spectral wave form analysis the left upper extr emity venous system FINDINGS: There is patency and compressibility of the internal jugular vein. There is flow in the subclavian ve in. There is compressibility and flow in the axillary vein, cephalic vein, basilic vein, brachial vein, radial vein. There is compressibility of the ulnar vein. No evidence of abnormal swelling in the region of concern. IMPRESSION: No evidence of thrombus in the visualized left upper extremity deep venous system. No abnormality in the region of concern. Transcribed Date/Time: 03/08/2020 2:22 PM
== END 2020-03-08 13:20 | disposition home or self-care (01) ==
LOC: BICULT 13:19
PROVIDERS: ATTEND Family Medicine
DX: M79.89 Other specified soft tissue disorders (principal)

== ENCOUNTER 2022-12-11 09:13 | Emergency (ER) | payer BC ==
[2022-12-11 10:41] LABS: #Eosinphils 0.3 thou/uL (0.0-0.7); #Monocytes 0.6 thou/uL (0.11-0.59); #Neutrophils 7.4 thou/uL (1.40-6.50); %Basophils 0.2 % (0.0-1.0); %Eosinophils 3.1 % (0.0-10.0); %Lymphocytes 18.2 % (21.0-51.0); %Monocytes 5.4 % (0.0-10.0); %Neutrophils 72.9 % (42.0-75.0); Hematocrit 41.8 % (36.0-47.0); Hemoglobin 13.7 g/dL (12.0-16.0); Mean Corpuscular HGB CONC 32.8 g/dL (32.0-36.0); Mean Corpuscular Hemoglobin 27.1 pg (27.0-31.0); Mean Corpuscular Volume 82.6 fl (78.0-98.0); Mean Platelet Volume 10.3 fL (7.4-10.4); Platelet Count 302 10x3/uL (130-400); RBC Distribution Width 12.7 % (11.5-14.5); Red Blood Cell (RBC) Count 5.06 mill/uL (4.20-5.40); White Blood Cell (WBC) Count 10.2 10x3/uL (4.8-10.8)
[2022-12-11] MEDS ORDERED: Ondansetron PF 4 MG/2 ML Vial ONE (10:46)
[2022-12-11 11:06] LABS: ALT (SGPT) 19 U/L (8-55); AST (SGOT) 13 U/L (5-34); Albumin 4.8 g/dL (3.5-5.0); Alkaline Phosphatase 94 U/L (40-110); Anion Gap 13 mmol/L (10-20); BUN (Urea Nitrogen) 11 mg/dL (7.0-18.7); Bilirubin, Total 0.4 mg/dL (0.2-1.2); Calc. Creatinine Clearance 0 mL/min (70-130); Calcium 9.3 mg/dL (7.8-10.44); Carbon Dioxide 23 mmol/L (22-29); Chloride 105 mmol/L (98-107); Estimated GFR 106; Globulin 2.9 g/dL (2.4-3.5); Glucose 118 mg/dL (70-105); Lipase 35 U/L (8-78); Potassium 3.6 mmol/L (3.5-5.1); Protein, Total 7.7 g/dL (6.0-8.3); Sodium 137 mmol/L (136-145)
[2022-12-11 11:14] LABS: BHCG - Serum Negative (NEGATIVE); Pregs Control Background? CLEAR/WHITE (CLR/WHITE); Pregs Control Bar Appear? YES (CONTROL BAR)
== END 2022-12-11 12:26 | disposition home or self-care (01) ==
LOC: ERS 09:13
DX: R11.2 Nausea with vomiting, unspecified (principal); R19.7 Diarrhea, unspecified; E11.9 Type 2 diabetes mellitus without complications; Z79.84 Long term (current) use of oral hypoglycemic drugs
CPT/HCPCS: 36415; 74177; 80053; 83690; 84703; 85025; 96361; 96374; J2405

== ENCOUNTER 2023-02-27 09:14 | Outpatient (CLI) | payer BC | END 2023-02-27 09:15 | disposition home or self-care (01) | LOC: BICULT 09:14 | PROVIDERS: ATTEND Family Medicine | DX: R10.13 Epigastric pain (principal); R10.11 Right upper quadrant pain | CPT/HCPCS: 76705 ==